=== PATIENT | male | born 1995 | race Two or more races ===

== ENCOUNTER 2020-03-20 19:30 | Emergency (ER) | payer OTHER ==
[~2020-03-20] VITALS: Ht 170.2 cm; Wt 73.5 kg
--- NOTE | 2020-03-20 19:43 | NUR ---
at bedside for MSE
--- NOTE | 2020-03-20 19:43 | NUR ---
patient complaints of bee sting to bottom of right foot that patient reports causes itching and hives, patient does note appear in any distress, no shortness of breath noted
[2020-03-20] MEDS ORDERED: diphenhydrAMINE 50 MG/1 ML VIAL ONE (19:45)
[2020-03-20] MEDS ORDERED: predniSONE 10 MG TABLET ONE (19:50)
[2020-03-20] MEDS ORDERED: FAMOTIDINE 20 MG TABLET ONE (19:50)
[2020-03-20] MEDS ORDERED: predniSONE 50 MG TABLET ONE (19:50)
--- NOTE | 2020-03-20 19:50 | NUR ---
patient states he took benadryl at home prior to coming to the ER
--- NOTE | 2020-03-20 19:55 | NUR ---
Patient discharged to home in stable condition. RX given. Patient noted ambulating with steady gait to waiting room. Accompanied by father. Written and verbal after care instructions given. instructed on Epi pen usage. Patient verbalizes understanding of instructions. Stressed follow up or return to ER for worsening s/s.
[2020-03-20] MEDS ORDERED: predniSONE 20 MG TABLET PO ONE (20:00)
[2020-03-20] MEDS ORDERED: FAMOTIDINE 20 MG TABLET PO ONE (20:00)
[2020-03-20 20:04] VITALS: BP 105/62
== END 2020-03-20 19:55 | disposition home or self-care (01) ==
LOC: ER 19:33
DX: R06.02 Shortness of breath (principal); T63.441A Toxic effect of venom of bees, accidental (unintentional), initial encounter; L23.89 Allergic contact dermatitis due to other agents; Y92.89 Other specified places as the place of occurrence of the external cause
CPT/HCPCS: 99283; J7512 ×2; A4663; J1200